=== PATIENT | female | born 1990 | race Caucasian/White ===

== ENCOUNTER 2019-11-21 13:25 | Outpatient (CLI) | payer OTHER ==
--- NOTE | 2019-11-22 12:31 | XRAY Report ---
Reason: RIGHT KNEE PAIN Procedure Date: 11/21/2019 Accession Number: [id number] / [id number] Procedure: XRS - Knee 3 View RT CPT Code: Final Report FULL RESULT: EXAM: RIGHT KNEE RADIOGRAPHY EXAM DATE: 11/21/2019 01:37 PM. CLINICAL HISTORY: Right knee pain. COMPARISON: None. TECHNIQUE: 3 views. FINDINGS: Bones: Normal. No fractures or bone lesions. Joints: There is a joint effusion, no labral hemarthrosis. No dislocation. Soft Tissues: Normal. No soft tissue swelling. IMPRESSION: Joint effusion without osseous injury or significant degenerative changes detected. [facility]
== END 2019-11-21 13:26 | disposition home or self-care (01) ==
LOC: DI.S 13:25
PROVIDERS: ATTEND Family Medicine
DX: M25.461 Effusion, right knee (principal)